=== PATIENT | female | born 1965 | race African-American/Black ===

== ENCOUNTER 2022-03-28 08:05 | Inpatient (IN) ==
[2022-03-21 11:44] LABS: Calcium 9.1 MG/DL (8.5-10.1); Osmolality,Calculated 279.4 MOS/KG (273-304); Potassium 3.4 MMOL/L (3.5-5.1)
[2022-03-21 12:37] LABS: Basophils % 0.4 % (0.0-0.8); Eosinophils # 0.3 10*3/uL (0.0-0.87); Eosinophils % 3.9 % (0.00-10.9); Hematocrit 36.1 VOL% (35.7-47.0); Hemoglobin 11.9 GM/DL (12.0-16.0); Immature Granulocytes % 0.4 %; Immature Granulocytes Absolute 0.03 #; Lymphocytes # 1.8 10*3/uL (1.4-4.0); Lymphocytes % 21.7 % (21.3-54.2); Mean Corpuscular Volume 86.6 FL (87-102); Monocytes # 0.5 10*3/uL (0.11-0.8); Monocytes % 5.6 % (1.7-12.7); Platelet Count 284 T/CUMM (130-400); Red Blood Count 4.17 MC/CUMM (3.8-5.5); White Blood Count 8.4 T/CUMM (4-12)
[~2022-03-28 08:05] MED LIST: ceFAZolin 2,000 MG/50 ML DUPLEX IV ONE
[2022-03-28] MEDS ORDERED: DIAZEPAM 5 MG TABLET PO ONE (08:47)
[2022-03-28] MEDS ORDERED: LACTATED RINGERS 1,000 ML IV SCH (09:00)
[2022-03-28] MEDS ORDERED: ROCURONIUM 50 MG/5 ML VIAL IV ONE ×2 (09:50→11:49)
[2022-03-28] MEDS ORDERED: SEVOFLURANE 1 UNIT/15 MINUTE INH ONE (09:50)
[2022-03-28] MEDS ORDERED: MIDAZOLAM 2 MG/2 ML VIAL ONE (09:50)
[2022-03-28] MEDS ORDERED: LIDOCAINE 2% 5 ML VIAL ONE (09:50)
[2022-03-28] MEDS ORDERED: propofoL 200 MG/20 ML VIAL IV ONE (09:50)
[2022-03-28] MEDS ORDERED: fentaNYL 100 MCG/2 ML VIAL ONE ×2 (09:51→10:54)
[2022-03-28] MEDS ORDERED: ONDANSETRON 4 MG/2 ML VIAL ONE ×2 (10:57→12:56)
[2022-03-28] MEDS ORDERED: ESMOLOL 100 MG/10 ML VIAL IV ONE (10:57)
[2022-03-28] MEDS ORDERED: LABETALOL 20 MG/4 ML SYRINGE IV ONE (11:05)
[2022-03-28] MEDS ORDERED: hydrALAZINE 20 MG/1 ML VIAL ONE (11:57)
[2022-03-28] MEDS ORDERED: SUGAMMADEX 200 MG/2 ML VIAL IV ONE (12:42)
[2022-03-28] MEDS ORDERED: KETOROLAC 30 MG/1 ML VIAL ONE (12:51)
[2022-03-28] MEDS ORDERED: HYDROmorphone 1 MG/1 ML SYRINGE ONE (12:56)
[2022-03-28] MEDS ORDERED: BUPIVACAINE 0.5% 50 ML VIAL ONE (13:16)
[2022-03-28] MEDS ORDERED: PROMETHAZINE 25 MG/1 ML VIAL IM PRN (13:38)
[2022-03-28] MEDS ORDERED: ONDANSETRON 4 MG/2 ML VIAL IV PRN (13:38)
[2022-03-28] MEDS: HYDROmorphone 1 MG/1 ML SYRINGE IV PRN ×7 (13:48→23:48)
[2022-03-28] MEDS ORDERED: METOPROLOL TARTRATE 25 MG TABLET PO ONE (14:30)
[2022-03-28 14:35] LABS: Basophils % 0.1 % (0.0-0.8); Eosinophils # 0.1 10*3/uL (0.0-0.87); Eosinophils % 0.6 % (0.00-10.9); Hematocrit 38.3 VOL% (35.7-47.0); Hemoglobin 12.9 GM/DL (12.0-16.0); Immature Granulocytes % 0.4 %; Immature Granulocytes Absolute 0.06 #; Lymphocytes % 13.9 % (21.3-54.2); Mean Corpuscular HGB Conc 33.7 GM/DL (32-36); Mean Corpuscular Volume 84.4 FL (87-102); Mean Platelet Volume 9.7 FL (9.6-12.0); Monocytes # 0.6 10*3/uL (0.11-0.8); Monocytes % 4.4 % (1.7-12.7); Neutrophils % 80.6 % (38.7-73.9); Platelet Count 255 T/CUMM (130-400); Red Blood Count 4.54 MC/CUMM (3.8-5.5); White Blood Count 14.4 T/CUMM (4-12)
[2022-03-28 14:49] LABS: Albumin 2.8 G/DL (3.4-5.0); Bilirubin,Total 0.8 MG/DL (0.20-1.00); Calcium 9.1 MG/DL (8.5-10.1); Osmolality,Calculated 286.1 MOS/KG (273-304); Potassium 2.7 MMOL/L (3.5-5.1); Total Protein 6.6 G/DL (6.4-8.2)
[2022-03-28 15:21] LABS: Platelet Estimate Normal
[2022-03-28] MEDS: LACTATED RINGERS 1,000 ML IV SCH (15:47)
[2022-03-28] MEDS: KETOROLAC 15 MG/1 ML VIAL IV SCH (16:16)
[2022-03-28] MEDS ORDERED: POTASSIUM CHLORIDE 20 MEQ TABLET PO ONE (20:10)
[2022-03-28] MEDS: ROSUVASTATIN 10 MG TABLET PO SCH (20:52)
[2022-03-28] MEDS ORDERED: ALBUTEROL 2.5 MG/3 ML NEB RESP TX PRN (22:00)
[2022-03-28] MEDS: hydrALAZINE 20 MG/1 ML VIAL IV PRN (23:47)
[2022-03-29] MEDS: KETOROLAC 15 MG/1 ML VIAL IV SCH ×4 (03:05→21:18)
[2022-03-29] MEDS: LACTATED RINGERS 1,000 ML IV SCH ×4 (03:26→19:52)
[2022-03-29] MEDS: HYDROmorphone 1 MG/1 ML SYRINGE IV PRN ×5 (04:15→23:17)
[2022-03-29 04:48] LABS: Basophils % 0.2 % (0.0-0.8); Eosinophils % 0.1 % (0.00-10.9); Hematocrit 36.6 VOL% (35.7-47.0); Hemoglobin 12.4 GM/DL (12.0-16.0); Immature Granulocytes % 0.4 %; Immature Granulocytes Absolute 0.05 #; Lymphocytes # 1.6 10*3/uL (1.4-4.0); Lymphocytes % 12.5 % (21.3-54.2); Mean Corpuscular HGB Conc 33.9 GM/DL (32-36); Mean Corpuscular Volume 84.5 FL (87-102); Mean Platelet Volume 9.8 FL (9.6-12.0); Monocytes # 0.7 10*3/uL (0.11-0.8); Monocytes % 5.6 % (1.7-12.7); Neutrophils % 81.2 % (38.7-73.9); Platelet Count 241 T/CUMM (130-400); Red Blood Count 4.33 MC/CUMM (3.8-5.5); Red Cell Distribution Width 14.8 % (9.3-17.3); White Blood Count 12.4 T/CUMM (4-12)
[2022-03-29 05:20] LABS: Albumin 2.6 G/DL (3.4-5.0); Bilirubin,Total 0.8 MG/DL (0.20-1.00); Osmolality,Calculated 280.3 MOS/KG (273-304); Potassium 2.9 MMOL/L (3.5-5.1); Total Protein 6.5 G/DL (6.4-8.2)
[2022-03-29] MEDS: METOPROLOL TARTRATE 50 MG TABLET PO SCH ×2 (08:37→09:32)
[2022-03-29] MEDS: ENOXAPARIN 40 MG/0.4 ML SYRINGE SUBCUT SCH (09:32)
[2022-03-29] MEDS: PANTOPRAZOLE 40 MG VIAL IV SCH (09:33)
[2022-03-29] MEDS ORDERED: MAGNESIUM SULF RIDER 2 GM/50 ML PREMIX IV ONE (10:30)
[2022-03-29] MEDS: POTASSIUM CHLORIDE 20 MEQ TABLET PO PRN ×2 (10:32→12:48)
[2022-03-29] MEDS: hydrALAZINE 20 MG/1 ML VIAL IV PRN (15:30)
[2022-03-29] MEDS: ROSUVASTATIN 10 MG TABLET PO SCH (20:33)
[2022-03-30] MEDS: LACTATED RINGERS 1,000 ML IV SCH ×4 (03:55→20:01)
[2022-03-30] MEDS: KETOROLAC 15 MG/1 ML VIAL IV SCH ×4 (04:33→21:29)
[2022-03-30] MEDS: HYDROmorphone 1 MG/1 ML SYRINGE IV PRN ×5 (04:54→21:08)
[2022-03-30 06:31] LABS: Basophils % 0.2 % (0.0-0.8); Eosinophils # 0.5 10*3/uL (0.0-0.87); Eosinophils % 4.1 % (0.00-10.9); Hematocrit 32.8 VOL% (35.7-47.0); Hemoglobin 10.9 GM/DL (12.0-16.0); Immature Granulocytes % 0.6 %; Immature Granulocytes Absolute 0.07 #; Lymphocytes # 1.8 10*3/uL (1.4-4.0); Lymphocytes % 15.3 % (21.3-54.2); Mean Corpuscular HGB Conc 33.2 GM/DL (32-36); Mean Corpuscular Volume 85.9 FL (87-102); Mean Platelet Volume 10.6 FL (9.6-12.0); Monocytes # 0.7 10*3/uL (0.11-0.8); Monocytes % 6.3 % (1.7-12.7); Neutrophils % 73.5 % (38.7-73.9); Platelet Count 224 T/CUMM (130-400); Red Blood Count 3.82 MC/CUMM (3.8-5.5); Red Cell Distribution Width 15.1 % (9.3-17.3); White Blood Count 11.6 T/CUMM (4-12)
[2022-03-30 07:04] LABS: Albumin 2.4 G/DL (3.4-5.0); Bilirubin,Total 0.7 MG/DL (0.20-1.00); Osmolality,Calculated 274.5 MOS/KG (273-304); Potassium 3.4 MMOL/L (3.5-5.1); Total Protein 6.4 G/DL (6.4-8.2)
[2022-03-30] MEDS: POTASSIUM CHLORIDE 20 MEQ TABLET PO PRN ×3 (08:34→12:28)
[2022-03-30] MEDS: METOPROLOL TARTRATE 50 MG TABLET PO SCH (08:34)
[2022-03-30] MEDS: ENOXAPARIN 40 MG/0.4 ML SYRINGE SUBCUT SCH (08:35)
[2022-03-30] MEDS: PANTOPRAZOLE 40 MG VIAL IV SCH (08:38)
[2022-03-30] MEDS: hydrALAZINE 20 MG/1 ML VIAL IV PRN (12:22)
[2022-03-30] MEDS: ROSUVASTATIN 10 MG TABLET PO SCH (21:08)
[2022-03-31] MEDS: KETOROLAC 15 MG/1 ML VIAL IV SCH ×2 (02:30→08:49)
[2022-03-31] MEDS: HYDROmorphone 1 MG/1 ML SYRINGE IV PRN ×3 (02:33→11:40)
[2022-03-31] MEDS: PANTOPRAZOLE 40 MG VIAL IV SCH (08:47)
[2022-03-31] MEDS: METOPROLOL TARTRATE 50 MG TABLET PO SCH (08:47)
[2022-03-31] MEDS: ENOXAPARIN 40 MG/0.4 ML SYRINGE SUBCUT SCH (08:47)
[2022-03-31] MEDS: POLYETHYLENE GLYCOL POWDER 17 GM PACK PO SCH (10:05)
[2022-03-31] MEDS: LACTATED RINGERS 1,000 ML IV SCH (17:20)
[2022-03-31] MEDS: oxyCODONE/ACETAMINOPHEN 5-325 MG TABLET PO PRN ×2 (18:04→22:59)
[2022-03-31] MEDS: ROSUVASTATIN 10 MG TABLET PO SCH (20:32)
[2022-04-01] MEDS: oxyCODONE/ACETAMINOPHEN 5-325 MG TABLET PO PRN (06:16)
[2022-04-01] MEDS: PANTOPRAZOLE 40 MG VIAL IV SCH (10:40)
[2022-04-01] MEDS: POLYETHYLENE GLYCOL POWDER 17 GM PACK PO SCH (10:40)
[2022-04-01] MEDS: METOPROLOL TARTRATE 50 MG TABLET PO SCH (10:40)
[2022-04-01] MEDS: HYDROmorphone 1 MG/1 ML SYRINGE IV PRN ×2 (12:13→19:35)
[2022-04-01] MEDS: ENOXAPARIN 40 MG/0.4 ML SYRINGE SUBCUT SCH (12:43)
[2022-04-01] MEDS: ROSUVASTATIN 10 MG TABLET PO SCH (19:35)
[2022-04-02] MEDS: HYDROmorphone 1 MG/1 ML SYRINGE IV PRN ×4 (00:28→22:02)
[2022-04-02] MEDS: POTASSIUM CHLORIDE 20 MEQ TABLET PO PRN (06:51)
[2022-04-02] MEDS: METOPROLOL TARTRATE 50 MG TABLET PO SCH (10:09)
[2022-04-02] MEDS: PANTOPRAZOLE 40 MG VIAL IV SCH (10:09)
[2022-04-02] MEDS: ENOXAPARIN 40 MG/0.4 ML SYRINGE SUBCUT SCH (10:20)
[2022-04-02] MEDS: POLYETHYLENE GLYCOL POWDER 17 GM PACK PO SCH ×2 (10:39→22:02)
[2022-04-02] MEDS: oxyCODONE/ACETAMINOPHEN 5-325 MG TABLET PO PRN (17:57)
[2022-04-02] MEDS: ROSUVASTATIN 10 MG TABLET PO SCH (22:02)
[2022-04-03] MEDS: oxyCODONE/ACETAMINOPHEN 5-325 MG TABLET PO PRN ×3 (07:40→21:31)
[2022-04-03] MEDS: PANTOPRAZOLE 40 MG VIAL IV SCH (08:46)
[2022-04-03] MEDS: ENOXAPARIN 40 MG/0.4 ML SYRINGE SUBCUT SCH (08:46)
[2022-04-03] MEDS: METOPROLOL TARTRATE 50 MG TABLET PO SCH (08:46)
[2022-04-03] MEDS: POLYETHYLENE GLYCOL POWDER 17 GM PACK PO SCH ×2 (08:46→21:32)
[2022-04-03] MEDS ORDERED: ONDANSETRON ODT 4 MG TABLET PO PRN (12:59)
[2022-04-03] MEDS: ROSUVASTATIN 10 MG TABLET PO SCH (21:30)
[2022-04-04] MEDS: oxyCODONE/ACETAMINOPHEN 5-325 MG TABLET PO PRN (04:15)
[2022-04-04 08:47] VITALS: BP 119/56
[2022-04-04] MEDS ORDERED: PANTOPRAZOLE 40 MG TABLET PO SCH (09:00)
[2022-04-04] MEDS: POLYETHYLENE GLYCOL POWDER 17 GM PACK PO SCH (09:20)
[2022-04-04] MEDS: METOPROLOL TARTRATE 50 MG TABLET PO SCH (09:20)
[2022-04-04] MEDS: ENOXAPARIN 40 MG/0.4 ML SYRINGE SUBCUT SCH (09:21)
== END 2022-04-04 10:11 | disposition home or self-care (01) | DRG 410 ==
LOC: N.SDSINP 08:05 → N.3E 14:31
PROVIDERS: ADMIT Surgery; ATTEND Surgery